=== PATIENT | female | born 1985 | race Two or more races ===

== ENCOUNTER → 2019-12-15 13:00 | Outpatient (BNVA) | payer OTHER, SELFPAY | PROVIDERS: PCP Internal Medicine; Visit Provider Surgery | DX: K81.1 Chronic cholecystitis (principal); K80.50 Calculus of bile duct without cholangitis or cholecystitis without obstruction | CPT/HCPCS: 99204 ==

== ENCOUNTER 2019-12-28 10:20 | Day surgery (SDC) | payer OTHER, SELFPAY ==
--- NOTE | 2019-12-27 10:43 | HO.ANESPROP2 ---
Documented by User: Sherine Weston 12/27/19 10:44 HPI - Anesthesia Eval Consult details Narrative: 34yo F for lap wanda PMFSH Past Medical History Medical History GERD (gastroesophageal reflux disease) Spina bifida Family History Family History Mother No problems noted. Father No problems noted. Maternal Aunt History of colon cancer Maternal Uncle History of colon cancer Sister History of thyroid cancer Surgical History Surgical History History of section History of hysterectomy Social History Social History Alcohol intake: current Alcohol intake frequency: holidays/special occasions only Smoking Status: Former smoker Smoking Quit Date: 9 years ago Use of substances other than those prescribed or required for medical reasons: No Have you been hit, kicked, punched, or otherwise hurt by someone within the past year? If so, by whom?: No Advance Directives: No Advance Directives Information Provided: Yes Advance Directives on File: No Recently lost weight without trying: Unsure Meds Allergies Allergy/AdvReac Type Severity Reaction Status Date / Time Penicillins Allergy Unknown HIVES,SWELL Verified 12/28/19 10:25 ING bee stings Allergy Severe Anaphylaxis Uncoded 12/28/19 10:26 shellfish Allergy Unknown selling Uncoded 12/28/19 10:26 hives Home Medications Medication Instructions Recorded Confirmed Type epinephrine 0.3 mg/0.3 mL 0.3 mg IM Q10M PRN 12/15/19 12/15/19 History injection, auto-injector Exam Exam Date and Time: December 27, 2019 1043 Pertinent Lab Results Pertinent Lab Results: Laboratory Tests 11/17/19 11/17/19 14:25 14:25 WBC 7.1 Hgb 12.7 Hct 38.3 Plt Count 333 Sodium 141 Potassium 4.2 Chloride 105 BUN 13 Creatinine 0.71 Assessment and Plan Assessment Anesthesia Assessment: Chart Reviewed Documented by User: Queta Grimes 12/28/19 11:48 PMFSH Past Medical History Medical History GERD (gastroesophageal reflux disease) Spina bifida Family History Family History Mother No problems noted. Father No problems noted. Maternal Aunt History of colon cancer Maternal Uncle History of colon cancer Sister History of thyroid cancer Surgical History Surgical History History of section History of hysterectomy Social History Social History Alcohol intake: current Alcohol intake frequency: holidays/special occasions only Smoking Status: Former smoker Smoking Quit Date: 9 years ago Use of substances other than those prescribed or required for medical reasons: No Have you been hit, kicked, punched, or otherwise hurt by someone within the past year? If so, by whom?: No Advance Directives: No Advance Directives Information Provided: Yes Advance Directives on File: No Recently lost weight without trying: Unsure Meds Allergies Allergy/AdvReac Type Severity Reaction Status Date / Time Penicillins Allergy Unknown HIVES,SWELL Verified 12/28/19 10:25 ING bee stings Allergy Severe Anaphylaxis Uncoded 12/28/19 10:26 shellfish Allergy Unknown selling Uncoded 12/28/19 10:26 hives Home Medications Medication Instructions Recorded Confirmed Type epinephrine 0.3 mg/0.3 mL 0.3 mg IM Q10M PRN 12/15/19 12/15/19 History injection, auto-injector Exam Airway Mallampati Class: II TM Dist: >3cm Neck ROM: Full
[2019-12-28] VITALS (11 sets, daily range): BP systolic 110–139; BP diastolic 54–67; PULSE 64–78; RESP 15–20; TEMP 36.1–36.6; O2SAT 98–100; BMI 39.6
[2019-12-28] MEDS: Acetaminophen 325 MG TABLET 650 MG PO (10:31)
[2019-12-28] MEDS: Lactated Ringers 1,000 ML 100 ML IVCONT (10:32)
--- NOTE | 2019-12-28 11:38 | MHC.SHP ---
Pre-Procedural Eval Section A The patient is an INPATIENT: No Changes since office visit: Yes Patient answered all questions; No Cold of Flu in the past 2 weeks, No New Medical Problems and No Changes in Medication The History & Physical has been completed within 30 days and I have reviewed it.: Yes Section B Chief Complaint: Chronic Cholecystitis Allergies: Allergies Allergy/AdvReac Type Severity Reaction Status Date / Time Penicillins Allergy Unknown HIVES,SWELL Verified 12/28/19 10:25 ING bee stings Allergy Severe Anaphylaxis Uncoded 12/28/19 10:26 shellfish Allergy Unknown selling Uncoded 12/28/19 10:26 hives Plan Diagnosis/Plan: Unchanged Patient has been examined and remains a candidate for the planned procedure
[2019-12-28] MEDS: Acetaminophen 325 MG TABLET PO (12:06)
--- NOTE | 2019-12-28 13:00 | PM.OP ---
Brief Operative Note Date of procedure: 12/28/19 Pre-op diagnosis: chronic cholecystitis Post-op diagnosis: same Procedure: laparoscopic cholecystectomy Surgeon: KARLY TAYLOR MD Anesthesia: GETA Manager Utility: Doris Vilchis Estimated blood loss (mL): 10 Pathology: other (gallbladder) Condition: stable Disposition: PACU
[2019-12-28] MEDS: oxyCODONE HCl Immed Release 5 MG TABLET 10 MG PO (13:20)
[2019-12-28] MEDS: fentaNYL citrate/PF 100 MCG/2 ML VIAL 50 MCG IVPUSH ×2 (13:20→13:30)
--- NOTE | 2019-12-29 16:13 | P.OP_ITS ---
Operative Note Operative Note Narrative: Preoperative diagnosis: Chronic cholecystitis cholelithiasis Postoperative diagnosis: Same Procedure: Laparoscopic cholecystectomy Laundry Attendant Doris Vilchis PA-C Anesthesia: General endotracheal Estimated blood loss: Less than 10 cc Specimen: gallbladder Immediate complications: none Indications this is a 34-year-old female who has a history of episodic severe epigastric and right upper quadrant abdominal pain. Ultrasound reveals probable sludge in the gallbladder. Procedure in detail with the patient in the supine position following induction of adequate general anesthesia, time-out procedure was performed. She had a penicillin allergy. There is no evidence of acute cholecystitis and prophylactic antibiotics were not administered as she was felt to be at low risk for surgical site infection. The abdomen was prepped with ChloraPrep and was draped sterilely. Each trocar site was infiltrated with local anesthetic prior to making incisions. An infraumbilical incision was made and was carried down to the level of the fascia. The fascia was elevated in the midline with a John clamp and holding sutures of 0 Polysorb were placed on either side. The John was released and the fascia was split in the midline. The peritoneal cavity was entered and the Mitchel trocar was inserted. The abdomen is insufflated with carbon dioxide to pressure of 15 mm of mercury in the 0 degree 5 mm laparoscopic was inserted. The peritoneal cavity was visualized. No abnormalities were noted. She was placed in reverse Trendelenburg position and was rotated left side down. 5 mm trocar was placed about a quarter of the way between the xiphoid and umbilicus just to the right of the midline an additional 5 mm trocars were inserted a few cm below the costal margin in approximately the midclavicular and anterior axillary lines. The anterior liver margin was elevated and the gallbladder was grasped on the fundus adjacent to the anterior liver margin and was retracted cephalad. It was grasped along the infundibulum and was retracted laterally using blunt graspers. Dissection was initiated on the infundibulum and was carried medially to expose the cystic duct gallbladder junction. This was dissected free circumferentially. The cystic artery was identified running just cephalad. It was dissected free circumferentially. Dissection was continued along the superomedial aspect of the gallbladder to obtain the critical view. Once this was completed, the cystic duct was doubly clipped just medial to the junction with the gallbladder, singly clipped at the junction with the gallbladder and divided between clips. The cystic artery was treated in the same fashion. The gallbladder was then dissected free from the liver bed using a combination of gentle blunt and electrosurgical dissection. No significant bleeding was encountered. Once the gallbladder was completely freed, the laparoscope was removed and reinserted through the upper medial trocar site. The specimen pouch was inserted through the Mitchel trocar and advanced into the right upper quadrant. The gallbladder was placed into the pouch and the pouch was closed and withdrawn along with the Mitchel trocar. The Mitchel was then reinserted and the laparoscopic was placed back through it. The operative field was visualized. Clips were intact on the cystic duct and cystic artery stumps. The right upper quadrant was copiously irrigated with saline solution and was again inspected for bleeding. No bleeding was seen. Clips again were noted to be intact. Following this, she was returned to the supine position. Upper abdominal trocars were removed under direct vision. There was no evidence of bleeding from the trocar sites. Insufflation was discontinued and gas was allowed to escape from the peritoneal cavity. Fascia at the Mitchel trocar site was then closed with a figure 8 suture of 0 Polysorb and the holding sutures were tied to 1 another. Skin incisions were closed with subcuticular sutures of 4 0 Polysorb. Steri-Strips and dry sterile dressings were applied. She tolerated the procedure well and was transported to the recovery room in stable condition. There were no immediate complications.
== END 2019-12-28 15:14 | disposition home or self-care (01) ==
PROVIDERS: PCP Internal Medicine; Visit Provider Surgery
PROC: 0FT44ZZ Resection of Gallbladder, Percutaneous Endoscopic Approach (ICD-10-PCS; CPT 47562; principal; 2019-12-28 12:10)
DX: K81.1 Chronic cholecystitis (principal); K21.9 Gastro-esophageal reflux disease without esophagitis; Q05.9 Spina bifida, unspecified; Z87.891 Personal history of nicotine dependence; Z79.899 Other long term (current) drug therapy; Z88.0 Allergy status to penicillin
CPT/HCPCS: 47562; 88304; J1100; J1885; J2250; J2405; J3010

== ENCOUNTER → 2020-01-12 13:06 | Outpatient (BNVA) | payer OTHER, SELFPAY | PROVIDERS: PCP Internal Medicine; Visit Provider Surgery | DX: Z48.815 Encounter for surgical aftercare following surgery on the digestive system (principal); K64.9 Unspecified hemorrhoids; Z90.49 Acquired absence of other specified parts of digestive tract | CPT/HCPCS: 99212 ==

== ENCOUNTER → 2020-03-27 08:56 | Outpatient (BNVA) | payer OTHER, SELFPAY | PROVIDERS: PCP Internal Medicine; Visit Provider Surgery | DX: Z76.89 Persons encountering health services in other specified circumstances (principal) | CPT/HCPCS: 99212 ==

== ENCOUNTER 2021-12-18 12:18 | Outpatient (REF) | payer OTHER, SELFPAY ==
--- NOTE | ~2021-12-18 | XR_ITS ---
EXAMINATION: XR CHEST CLINICAL INFORMATION: Chronic cough COMPARISON: Chest 10/27/2017 TECHNIQUE: 2 views of the chest were obtained. FINDINGS: No significant abnormality is noted involving the heart, lungs, mediastinum, bony thorax or soft tissues. XR/XR chest 2V IMPRESSION: Unremarkable chest examination.
== END 2021-12-18 12:19 | disposition home or self-care (01) ==
LOC: HO.XRAY 12:18
PROVIDERS: PCP Internal Medicine; Visit Provider Internal Medicine
DX: R05.3 Chronic cough (principal)
CPT/HCPCS: 71046

== ENCOUNTER 2022-01-16 14:37 | Outpatient (REF) | payer OTHER, SELFPAY ==
--- NOTE | 2022-01-16 | PFT_ITS ---
Forced vital capacity 94%. FEV1 89%. FEV1/FVC ratio is 79. AJG30-85 is 70%, MVV 100%. Post bronchodilator therapy, there is slight increase in WJS05-37. No other specific change. Total lung capacity 92%. Residual volume 84%. Diffusion capacity 115%. CONCLUSION: Normal pulmonary function tests. However, slight decrease in [id number] and a good response after bronchodilator therapy, may be indicative of a mild bronchospastic component. Test should be correlated with clinical picture. MD ELINOR Jones/MODL / [id number]
== END 2022-01-16 14:38 | disposition home or self-care (01) ==
LOC: HO.RESP 14:37
PROVIDERS: PCP Internal Medicine; Visit Provider Internal Medicine
DX: R05.3 Chronic cough (principal); Z79.899 Other long term (current) drug therapy
CPT/HCPCS: 94060; 94727; 94729

== ENCOUNTER 2023-08-11 08:24 | Outpatient (REF) | payer MEDICAID, SELFPAY ==
--- NOTE | 2023-08-11 08:27 | EMG_ITS ---
Bilateral median and ulnar motor and sensory studies were performed. Bilateral radial sensory studies were performed and paraspinal muscles were tested with a needle. IMPRESSION: Mild right median neuropathy across carpal tunnel. Otherwise no significant abnormality noted. MD ROLANDO Velázquez/PRICILA / [id number]
== END 2023-08-11 08:25 | disposition home or self-care (01) ==
LOC: HO.NEURO 08:24
PROVIDERS: PCP Internal Medicine; Visit Provider Internal Medicine
DX: M25.531 Pain in right wrist (principal); M25.532 Pain in left wrist
CPT/HCPCS: 95886; 95911

== ENCOUNTER 2023-09-02 10:49 | Outpatient (AMB) | payer MEDICAID, SELFPAY ==
--- NOTE | 2023-09-02 11:04 | MHC.OFFVIS ---
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 EMG done on 08/11/23. Patient reports painand numbness in her hands since last year that has been getting worse since July. Her left hand causes her the most discomfort. States numbness in all of her fingers of her left hand and her middle finger in her right hand. Symptoms mostly come at night, waking her up. Pain and Numbness radiates to her elbow, causing her to drop items. Finds wrist bracing causes swelling and bruising. 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 EMG ordered by primary care provider and performed on 08/11/[address] Trimble. Patient reports that, for approximately 1 year, she has been experiencing numbness, tingling, and pain in her bilateral hands, left worse than right. Numbness and tingling are intermittent, but daily, worse at night. The patient reports that the pain in her hands gets worse with heavy/repetitive use of her hands bilaterally. The patient also reports pain over the medial epicondyle of the left elbow, ongoing for about 1 year. Patient reports that this pain also gets worse with repetitive/heavy use of her left upper extremity. [facility] Medical History GERD (gastroesophageal reflux disease) Spina bifida Surgical History History of laparoscopic cholecystectomy History of section History of hysterectomy Family History Mother No problems noted. Father No problems noted. 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 Normal sensation to all other digits in the right hand today. Normal sensation in the tips of all digits of the left hand today. No thenar or intrinsic wasting. Good APB muscle firing and good finger cross. Vascular: Capillary refill brisk. ROM: Patient can make a fist and extend all their digits. Skin: No lacerations or abrasions noted. General: No ecchymosis. No erythema or evidence of infection. Positive Tinel's test of the hand on the right side Negative Tinel's test of the hand on the left side Left elbow examination Left elbow normal to inspection. Moderate tenderness to palpation over the medial epicondyle No tenderness to palpation over the lateral epicondyle Negative Tinel's test at the elbow Psych Appearance: grossly normal Mental Status: mental status grossly normal Results Reviewed Results Reviewed: Nerve conduction study Mild right median neuropathy across carpal tunnel. Otherwise no significant abnormality noted. Assessment & Plan Assessment & Plan (1) Medial epicondylitis of left elbow: Code(s): M77.02 - Medial epicondylitis, left elbow Category: Medical (2) Carpal tunnel syndrome, right: Code(s): G56.01 - Carpal tunnel syndrome, right upper limb Category: Medical (3) Numbness and tingling in left hand: Code(s): R20.0 - Anesthesia of skin; R20.2 - Paresthesia of skin Category: Medical Plan 1. Carpal tunnel syndrome, right Symptoms intermittent, but daily, worse at night I educated the patient about the condition. I discussed both operative and nonoperative treatment options. The patient would like to proceed with surgery. The risks and benefits of operative treatment were discussed with the patient and the patient wishes to proceed with surgery. These risks include, but are not limited to, risk of damage to blood vessels, nerves, tendons, infection, recurrence, incomplete relief of preoperative symptoms, persistent pain, possible need for further surgery, and the risks associated with regional blocks and/or anesthesia. Plan is to take the patient to the operating room at some point in the next few weeks for the following procedures: 1. Right carpal tunnel release under local anesthesia All of the preoperative paperwork including the consent was discussed today. All of the patient's questions were answered in the clinic today. The patient understands that they will be in contact with our surgical device sales representative to discuss scheduling their procedure. 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 Patient denies diabetes, blood thinners, asthma, heart issues, lung issues, kidney issues, or current smoking. 2. Left medial epicondylitis patient will be referred to Occupational therapy for treatment for medial epicondylitis. Patient is educated that this will not be a short recovery process, and then it will likely take several weeks to several months in order to get resolution of symptoms. Patient is advised that if symptoms do not resolve after approximately 3-4 months, they can follow up in the office for discussion of other potential treatment options. 3. Numbness and tingling of the left hand Symptoms intermittent, but daily, worse at night Negative nerve conduction study At this time, due to negative nerve conduction study, surgical treatment is not indicated in the left hand of this patient. Patient is advised that if she is still experiencing symptoms in approximately 6 months, she can follow up in office and we will get a repeat nerve conduction study. Orders: Orders OT Evaluation and Treatment 09/02/23 M77.02 - Medial epicondylitis, left elbow Coding Level of Care Code New Pt Level 4 (66529) Diagnoses Medial epicondylitis of left elbow M77.02 Carpal tunnel syndrome, right G56.01 Numbness and tingling in left hand R20.0; R20.2
== END 2023-09-02 14:54 | disposition home or self-care (01) ==
PROVIDERS: PCP Internal Medicine
DX: G56.01 Carpal tunnel syndrome, right upper limb (principal); M77.02 Medial epicondylitis, left elbow; R20.0 Anesthesia of skin; R20.2 Paresthesia of skin
CPT/HCPCS: 99204

== ENCOUNTER → 2023-09-02 10:49 | Outpatient (BNVA) | payer MEDICAID, SELFPAY | PROVIDERS: PCP Internal Medicine; Visit Provider Orthopaedic Surgery | DX: M77.02 Medial epicondylitis, left elbow (principal); G56.01 Carpal tunnel syndrome, right upper limb; R20.0 Anesthesia of skin; R20.2 Paresthesia of skin | CPT/HCPCS: 99202; 99212 ==

== ENCOUNTER 2023-11-05 10:01 | Day surgery (SDC) | payer MEDICAID, SELFPAY ==
[2023-11-05 11:27] VITALS: BMI 41.6
[2023-11-05 11:28] VITALS: BP 121/58; PULSE 81; RESP 18; TEMP 36.7; O2SAT 96
--- NOTE | 2023-11-05 13:42 | MHC.SHP ---
Pre-Procedural Eval Section A - 24 Hr Update-Section A only Date of Service: 11/05/23 The patient is an INPATIENT: No Changes since office visit: No Cold of Flu in the past 2 weeks, No New Medical Problems, No Changes in Medication and No Patient answered all questions The patient has been examined within 24 hours of the surgical procedure. The History & Physical has been completed within 30 days and I have reviewed it.: Yes Section B - Complete if H&P > 30 days Chief Complaint: Carpal tunnel syndrome, right upper limb Allergies: Allergies Allergy/AdvReac Type Severity Reaction Status Date / Time Penicillins Allergy Unknown HIVES,SWELL Verified 09/02/23 11:15 ING bee stings Allergy Severe Anaphylaxis Uncoded 09/02/23 11:15 shellfish Allergy Unknown selling Uncoded 09/02/23 11:15 hives Exam Exam Comment: Right carpal tunnel syndrome Plan Diagnosis/Plan: Unchanged I have reviewed the history and physical and performed a pertinent physical examination on my patient. No changes have occurred unless specified. Time Spent With Patient Time: Total time managing care of this patient today ____ minutes.
--- NOTE | 2023-11-05 13:42 | W.PM.OPN ---
Operative Note Operative Note Date of Service: 11/05/23 Narrative: Preop diagnosis: 1. Right Carpal tunnel syndrome Postop diagnosis: same Procedure: 1. Right Carpal tunnel release Surgeon: Chandni Alegre MD Electronics Instructor: Catalino GIRON Anesthesia: local block using 1% lidocaine with epinephrine Findings: Thickened transverse carpal ligament. EBL: Less than 5 mL Specimens: None Complications: None Disposition: Brought to recovery room in stable condition Plan: Follow-up for 10-14 days for wound check and suture removal Indications: The patient is 38 years old, with right carpal tunnel syndrome that has been unresponsive to nonoperative management. The risks and benefits of operative treatment including but not limited to risk of damage to blood vessels, nerves, tendons, infection, persistent pain, persistent symptoms, or possible need for additional surgery were discussed with the patient and the patient wishes to proceed with surgery. Procedure: Once consent was obtained a local block was performed using a combination of 1% lidocaine with epinephrine. The patient was then brought back to the operating suite and placed on the operative table in supine position. The right upper extremity was prepped and draped in a standard surgical fashion. Once assured that we had a good block, a 2.0 cm longitudinal incision was made centered over the carpal tunnel. The incision was made through the skin to the subcutaneous tissues using a #15 blade. Dissection was made down to the level of the transverse carpal ligament with care being taken to protect the palmar cutaneous nerve. Once the transverse carpal ligament was clearly visualized, a longitudinal incision was made in the transverse carpal ligament 1st using a #15 blade, then using tenotomy scissors under direct visualization. Care was taken to look for and protect the motor branch of the median nerve when seen in this area. Once satisfied with our carpal tunnel release the wound was copiously irrigated with normal saline and hemostasis was obtained with a brief period of local pressure. The skin edges were reapproximated with some 5.0 nylon suture material and a sterile dressing was applied. The patient appears to have tolerated the procedure well and with no complications. All digits were well vascularized at the conclusion of the case.
[2023-11-05 15:28] VITALS: BP 134/87; PULSE 69; RESP 18; O2SAT 98
== END 2023-11-05 15:30 | disposition home or self-care (01) ==
PROVIDERS: PCP Internal Medicine; Visit Provider Orthopaedic Surgery
PROC: (CPT 64721; principal; 2023-11-05 13:10)
DX: G56.01 Carpal tunnel syndrome, right upper limb (principal); R20.0 Anesthesia of skin; R20.2 Paresthesia of skin; Q05.9 Spina bifida, unspecified; Z88.0 Allergy status to penicillin; Z98.890 Other specified postprocedural states
CPT/HCPCS: 64721; J0171

== ENCOUNTER → 2023-11-05 10:01 | Outpatient (BNV) | payer MEDICAID, SELFPAY | PROVIDERS: PCP Internal Medicine; Visit Provider Orthopaedic Surgery | DX: G56.01 Carpal tunnel syndrome, right upper limb (principal) | CPT/HCPCS: 64721 ==

== ENCOUNTER 2023-11-18 13:48 | Outpatient (AMB) | payer SELFPAY ==
--- NOTE | 2023-11-18 13:53 | MHC.OFFVIS ---
Vital Signs 11/18/23 13:58 Handedness Left Intake Visit Reasons: PO RT CTR 11/05/23 AR Intake Note: Janeth is a 38 year old 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 female who presents today post operatively S/P Right Carpal Tunnel Release DOS: 11/05/2023. Patient reports she no longer feels numbness and tingling. She reports her insicion site feels tight becaus eof her sutures. Sutures removed and steri strips applied. Allergies Penicillins Allergy (Unknown, Verified 11/18/23 13:57) HIVES,SWELLING bee stings Allergy (Severe, Uncoded 11/18/23 13:57) Anaphylaxis shellfish Allergy (Unknown, Uncoded 11/18/23 13:57) selling hives HPI HPI PO RT CTR 11/05/23 AR: Details: Patient is a 38-year-old female who presents for postoperative evaluation status post right carpal tunnel release, DOS 11/05/2023. Today, the patient reports that she is feeling very well, and is not experiencing any numbness or tingling in the right upper extremity at this time. Patient reports no concerns with the incision site, and states that she has not had any discharge from the area since surgery. Patient reports that the range of motion of her right hand is full and intact. No other acute complaints or concerns at this time. PENDING SALE TO [facility] Medical History GERD (gastroesophageal reflux disease) Spina bifida Surgical History History of laparoscopic cholecystectomy History of section History of hysterectomy Family History Mother No problems noted. Father No problems noted. 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 Neuro: Normal sensation of the tips of all digits of the right hand at this time Vascular: Cap refill brisk Pain: Very mild tenderness to palpation about the incision site Range of motion of the right hand painless ROM: Patient is able to make a closed fist and extend all digits of the right hand fully without difficulty Skin: Well-healing and well-approximated incision site on the volar right wrist noted No evidence of infection General: No ecchymosis, erythema, or evidence of infection. Psych: Appears grossly normal Affect normal Attitude cooperative Assessment & Plan Assessment & Plan (1) Numbness and tingling in left hand: Code(s): R20.0 - Anesthesia of skin; R20.2 - Paresthesia of skin Category: Medical (2) Carpal tunnel syndrome, right: Code(s): G56.01 - Carpal tunnel syndrome, right upper limb Category: Medical Plan 1. Right carpal tunnel syndrome status post carpal tunnel release DOS 11/04/2023 Patient appears to be recovering well postoperatively Patient is educated about the typical recovery course Patient is informed that she does not require any acute follow-up with us, as she is doing well postoperatively Patient is amenable to this plan Patient will follow-up as needed with any acute concerns 2. Numbness tingling in left hand With negative EMG Patient is informed that we can redo EMG six-month after previous EMG to reassess the health of the nerves of the left upper extremity Patient is amenable to this plan Patient will call to book an appointment in approximately February for referral for repeat EMG, sooner with any acute concerns Coding Level of Care Code Global (67038) Diagnoses Numbness and tingling in left hand R20.0; R20.2 Carpal tunnel syndrome, right G56.01
== END 2023-11-18 14:21 | disposition home or self-care (01) ==
PROVIDERS: PCP Internal Medicine
DX: R20.0 Anesthesia of skin (principal); R20.2 Paresthesia of skin; G56.01 Carpal tunnel syndrome, right upper limb
CPT/HCPCS: 99024

== ENCOUNTER → 2023-11-18 13:48 | Outpatient (BNVA) | payer MEDICAID, SELFPAY | PROVIDERS: PCP Internal Medicine | DX: Z48.811 Encounter for surgical aftercare following surgery on the nervous system (principal); Z98.890 Other specified postprocedural states; Z86.69 Personal history of other diseases of the nervous system and sense organs | CPT/HCPCS: 99212 ==

== ENCOUNTER → 2023-11-25 14:31 | Outpatient (BNVA) | payer OTHER, SELFPAY | PROVIDERS: PCP Internal Medicine; Visit Provider Physician Assistant Medical | DX: S76.112A Strain of left quadriceps muscle, fascia and tendon, initial encounter (principal); W03.XXXA Other fall on same level due to collision with another person, initial encounter; M25.462 Effusion, left knee | CPT/HCPCS: 73564; 99203 ==

== ENCOUNTER → 2023-12-02 11:40 | Outpatient (BNVA) | payer OTHER, SELFPAY | PROVIDERS: PCP Internal Medicine; Visit Provider Physician Assistant Medical | DX: M25.562 Pain in left knee (principal); R60.1 Generalized edema | CPT/HCPCS: 99213 ==

== ENCOUNTER 2024-01-20 09:38 | Emergency (ER) | payer OTHER, SELFPAY ==
--- NOTE | ~2024-01-20 | XR_ITS ---
EXAMINATION: XR CERVICAL SPINE CLINICAL INFORMATION: Neck pain COMPARISON: None available. TECHNIQUE: 3 views of the cervical spine were obtained. FINDINGS: The vertebral soft tissues normal. There is anterior spurring at C5-6 and C6-7, but no fracture or destructive process. The lateral masses of C1 and odontoid are intact. XR/XR cervical spine 2V IMPRESSION: Degenerative change but no acute findings. Electronically signed by: Jefferson Hennessy MD 01/20/2024 01:01 PM PAT MARKS
--- NOTE | ~2024-01-20 | XR_ITS ---
EXAMINATION: XR SACRUM AND COCCYX CLINICAL INFORMATION: fall, pain COMPARISON: None available. TECHNIQUE: 2 views of the sacrum and 2 views of the coccyx were obtained. FINDINGS: There are no fractures. No bone, joint or soft tissue abnormality is demonstrated. Bilateral sacroiliac joints are maintained. No soft tissue abnormality. No radiopaque foreign body. XR/XR sacrum coccyx min 2V IMPRESSION: No acute fracture or dislocation. Electronically signed by: Betsy Miguel DO 01/20/2024 03:37 PM EST
[2024-01-20 09:57] VITALS: BP 111/79; PULSE 82; RESP 16; TEMP 37; O2SAT 97; BMI 42.3
[2024-01-20 14:04] VITALS: BP 126/77; PULSE 76; RESP 16; TEMP 36.1; O2SAT 100
[2024-01-20] MEDS: Ketorolac Tromethamine 30 MG/ML VIAL IM (15:38)
--- NOTE | 2024-01-20 15:41 | ED.FALL ---
HPI - Fall General Chief Complaint: Fall Stated Complaint: Head Neck Back Pain S/P Fall 01/15/24 Time Seen by Provider: 01/20/24 13:44 Source: patient and RN notes reviewed Mode of arrival: ambulatory Limitations: no limitations History of Present Illness ED Provider: Eleanor Geiger PA-C HPI Narrative: This is a 38-year-old female who presents emergency department with complaints of mechanical fall which occurred last week. Patient states that 5 days ago she was getting into the shower while she was in [place], slipped and fell and landed directly onto her low back. She states that she was on the ground for several minutes. She denies hitting her head or LOC. She states that the pain in her back worsens with palpation, and with ambulation. She denies any severe headache, dizziness blurred vision, chest pain, shortness of breath, abdominal pain, nausea, vomiting or diarrhea. No other complaints or concerns at this time. MD complaint: fall Onset (ago): week(s) Fall from: standing Fall witnessed: no Place fall occurred: other (Hotel room) Loss of consciousness: none Prolonged down time: minute(s) Symptoms prior to fall: none Context: tripped/slipped Location of injury: back Associated symptoms (after fall): denies Related Data Home Medications ?Medication ?Instructions ?Recorded ?Confirmed epinephrine 0.3 mg/0.3 mL 0.3 mg IM Q10M PRN 12/15/19 12/15/19 injection, auto-injector (EpiPen) acidophilus 25 million 1 tab PO DAILY 03/27/20 03/27/20 cell-pectin, citrus 100 mg tablet omeprazole 40 mg capsule,delayed 40 mg PO DAILY 03/27/20 03/27/20 release citalopram 10 mg tablet 10 mg PO DAILY 09/02/23 hydroxyzine HCl 25 mg tablet 25 mg PO TID 09/02/23 trazodone 50 mg tablet 50 mg PO BEDTIME 09/02/23 Previous Rx's ?Medication ?Instructions ?Recorded cholestyramine-aspartame 4 gram 4 g PO QIDACHS #210 grams 03/27/20 oral powder naproxen 500 mg tablet 500 mg PO BID PRN back pain #28 11/25/23 tabs methocarbamol 750 mg tablet 750 mg PO TID 3 days #9 tabs 01/20/24 Allergies Allergy/AdvReac Type Severity Reaction Status Date / Time Penicillins Allergy Unknown HIVES,SWELL Verified 01/20/24 10:01 ING bee stings Allergy Severe Anaphylaxis Uncoded 11/18/23 13:57 shellfish Allergy Unknown selling Uncoded 11/18/23 13:57 hives Review of Systems Review of Systems: Yes all other systems are reviewed and are negative Constitutional: Constitutional: Reports as per [facility] Past Medical History Medical History GERD (gastroesophageal reflux disease) Spina bifida Surgical History History of laparoscopic cholecystectomy History of section History of hysterectomy Family History Family History Mother No problems noted. Father No problems noted. 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, 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 Physical Exam Vital Signs: Vital Signs: Last Vital Signs Temp 97.0 F 01/20/24 16:11 Pulse 76 01/20/24 16:11 Resp 16 01/20/24 16:11 BP 126/77 01/20/24 16:11 Pulse Ox 100 01/20/24 16:11 O2 Del Method Room Air 01/20/24 16:11 BMI result Body Mass Index 42.3 Const: General: cooperative, comfortable and no acute distress Orientation/consciousness: patient oriented x3 Limitations: no limitations HEENT: Head: Yes normal to inspection, Yes normocephalic and Yes atraumatic Ears: hearing grossly normal bilaterally and TM's normal bilaterally (No hemotympanum) General nose exam: Normal external nose present Face and sinus: Yes normal facial exam Mouth: Normal oral and palatal mucosa present, oropharynx normal and moist mucous membranes Throat: Yes posterior oropharynx normal Eyes: General: appearance normal, both eyes and all related structures Eyelids: Yes eyelids normal Conjunctivae: conjunctivae normal Sclerae: sclerae normal Pupils: Equal, round and reactive pupils present EOM: EOMs intact bilaterally Neck: Other: No midline spine tenderness on examination, full ROM of the neck Neck: Yes normal visual inspection, Yes full ROM and Yes no lymphadenopathy Lymphatic: no lymphadenopathy noted Chest: Chest palpation & inspection: normal inspection of the chest Resp: Effort & Inspection: normal respiratory effort and able to speak in complete sentences Auscultation: clear to auscultation bilaterally, no crackles, no rales, no rhonchi and no wheezes Cardio: Rate: regular rate Rhythm: regular rhythm Heart sounds: S1 normal heart sound present and S2 normal heart sound present GI: Inspection: Yes normal to inspection Back/Spine/Pelvis: Other: Lumbar spine with point tenderness palpation along the sacrum and coccyx region. No overlying skin changes or warmth. No ecchymosis seen. No hematoma seen. Skin: General skin exam: no rashes or lesions noted Trauma: no lacerations or abrasions Wounds: no wounds Neuro: General: patient oriented x3 and moves all extremities Cranial nerves: Yes Equal, round and reactive pupils present Extrem: General: Yes normal to inspection Right upper extremity: normal to inspection Left upper extremity: normal to inspection Right lower extremity: normal to inspection Left lower extremity: normal to inspection Medications Administered Discontinued Medications Generic Name Dose Route Start Last Admin Trade Name Freq PRN Reason Stop Dose Admin Ketorolac Tromethamine 30 mg 01/20/24 14:29 01/20/24 15:38 Ketorolac Tromethamine 30 Mg/Ml Vial IM 01/20/24 14:30 30 mg ONCE ONE Administration Medical Decision Making Medical Decision Making [facility] Narrative: This is a 38-year-old female who presents emergency department for evaluation of low back pain. Patient had a slip and fall 5 days prior to her assessment in the emergency room. She accidentally slipped on water, and fell directly onto her tailbone. She states that she was on the ground for several minutes due to the pain in her back. She has been ambulatory with steady gait. She has point tenderness palpation along her coccyx region. No LOC. Denies severe headache or dizziness. Fall occurred greater than 5 days ago. She is not on anticoagulation. X-rays were performed revealing no acute bony abnormalities from the traumatic fall. Discussed findings with patient. Discussed strict return precautions. She understands and agrees with plan. Patient stable for discharge Differential Diagnosis Differential Diagnoses: The differential diagnosis associated with the presentation includes Fracture, contusion, slipped disc, disc herniation Radiology Impression Discussion of test interpretation with radiology: I have reviewed the radiologist's reading. Radiologist Impression: EXAMINATION: XR SACRUM AND COCCYX CLINICAL INFORMATION: fall, pain COMPARISON: None available. TECHNIQUE: 2 views of the sacrum and 2 views of the coccyx were obtained. FINDINGS: There are no fractures. No bone, joint or soft tissue abnormality is demonstrated. Bilateral sacroiliac joints are maintained. No soft tissue abnormality. No radiopaque foreign body. XR/XR sacrum coccyx min 2V IMPRESSION: No acute fracture or dislocation. Electronically signed by: Betsy Miguel DO 01/20/2024 03:37 PM EST RP EXAMINATION: XR CERVICAL SPINE CLINICAL INFORMATION: Neck pain COMPARISON: None available. TECHNIQUE: 3 views of the cervical spine were obtained. FINDINGS: The vertebral soft tissues normal. There is anterior spurring at C5-6 and C6-7, but no fracture or destructive process. The lateral masses of C1 and odontoid are intact. XR/XR cervical spine 2V IMPRESSION: Degenerative change but no acute findings. Electronically signed by: Jefferson Hennessy MD 01/20/2024 01:01 PM EST RP Dictated By: Jefferson Hennessy MD Discharge Plan Discharge Clinical Impression: Low back pain, Pain, coccyx Patient Disposition: Home, Self-Care Instructions: Acute Low Back Pain (ED), Back Pain (ED) Additional Instructions: You were seen in the emergency department due to low back pain after a slip and fall last week. Your x-ray does not show any bony abnormalities. Please rest, ice, continue taking ibuprofen or Tylenol for pain relief. Please follow-up with your primary care physician regarding this visit. If any new or worsening symptoms occur including but not limited to worsening pain, fevers, chills, chest pain, shortness of breath, severe headache, dizziness, please return for re-evaluation. I am also prescribing you a different muscle relaxants, Robaxin, this can cause drowsiness, do not drink alcohol or drive while taking this medication. Do not mix with your previously prescribed Flexeril. Follow-up with your primary care physician regarding this visit. Prescriptions: New methocarbamol 750 mg tablet 750 mg PO TID 3 Days Qty: 9 0RF No Action acidophilus-pectin, citrus 25 million cell -100 mg tablet 1 tab PO DAILY omeprazole 40 mg capsule,delayed release(DR/EC) 40 mg PO DAILY cholestyramine-aspartame 4 gram powder 4 g PO QIDACHS Qty: 210 5RF Rx Instructions: no meds 1 hr before/4-6 hr after dose epinephrine [EpiPen] 0.3 mg/0.3 mL auto-injector 0.3 mg IM Q10M PRN Rx Instructions: for 2 doses trazodone 50 mg tablet 50 mg PO BEDTIME hydroxyzine HCl 25 mg tablet 25 mg PO TID citalopram 10 mg tablet 10 mg PO DAILY naproxen 500 mg tablet 500 mg PO BID PRN (Reason: back pain) Qty: 28 0RF Stand Alone Forms: Work/School Release Interventions: ED Discharge Assessment Last Done: 01/20/24 16:11 Discharge Date/Time: 01/20/24 16:12 Print Language: Rw[place]an
[2024-01-20 16:11] VITALS: BP 126/77; PULSE 76; RESP 16; TEMP 36.1; O2SAT 100
== END 2024-01-20 16:12 | disposition home or self-care (01) ==
PROVIDERS: Emergency Provider Student in an Organized Health Care Education/Training Program; PCP Internal Medicine
DX: M54.50 Low back pain, unspecified (principal); M53.3 Sacrococcygeal disorders, not elsewhere classified; M54.2 Cervicalgia; Z79.899 Other long term (current) drug therapy
CPT/HCPCS: 72040; 72220; 96372; 99283; 99284; J1885

== ENCOUNTER 2024-02-08 08:26 | Outpatient (REF) | payer OTHER, SELFPAY ==
[2024-02-08 19:41] LABS: Influenza A PCR NEGATIVE (Negative); Influenza B PCR NEGATIVE (Negative); Resp Syncy Virus RNA Qual PCR POSITIVE (Negative); SARS COV2 PCR INHOUSE NEGATIVE (Negative)
== END 2024-02-08 08:27 | disposition home or self-care (01) ==
LOC: HO.LNP 08:26
PROVIDERS: PCP Internal Medicine; Visit Provider Registered Nurse
DX: J06.9 Acute upper respiratory infection, unspecified (principal)
CPT/HCPCS: 0241U; 99212

== ENCOUNTER 2024-02-08 08:26 | Outpatient (AMB) | payer OTHER, SELFPAY ==
--- NOTE | 2024-02-08 09:16 | MHC.OFFWIV ---
Intake Vital Signs 02/08/24 09:17 Height 5 ft 1 in Weight 228 lb BMI 43.1 BP 110/70 Blood Pressure Location Rt brachial Position Sitting Pulse 79 Pulse Source Pulse Oximeter Temp 98.5 F Temp Source Oral Pulse Oximetry (%) 97 Oxygen Delivery Method Room Air Intake Visit Reasons: EP-body ache, stuffy nose, mucus, cough Intake Note: Patient here for cough, headache, body aches and congestion that started Thursday. Patient Tobacco Use Status: Former Tobacco user Allergies Penicillins Allergy (Unknown, Verified 02/08/24 09:17) HIVES,SWELLING bee stings Allergy (Severe, Uncoded 02/08/24 09:17) Anaphylaxis shellfish Allergy (Unknown, Uncoded 02/08/24 09:17) selling hives Do you need a note to return to daycare/school/sports/work: Yes HPI EP-body ache, stuffy nose, mucus, cough HPI Details This note is constructed using voice recognition software. While every effort has been made to ensure accuracy, fruit vendor errors may have been included. The patient is a 38 year old female who presents to the clinic today with 3 day history of body aches, stuffy nose, and cough and congestion. She reports symptoms felt relatively rapid onset on Thursday, and her son is also now sick. She denies shortness of breath. She is using multiple medications including TheraFlu, DayQuil, NyQuil, and Advil for symptomatic management. They all seem to be helping quite well. [facility] Medical History GERD (gastroesophageal reflux disease) Spina bifida Surgical History History of laparoscopic cholecystectomy History of section History of hysterectomy Family History Mother No problems noted. Father No problems noted. 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 Review of Systems Const All systems reviewed & are unremarkable except as noted in HPI and below Physical Exam Vital Signs: Last Vital Signs Temp 98.5 F 02/08/24 09:17 Pulse 79 02/08/24 09:17 BP 110/70 02/08/24 09:17 Pulse Ox 97 02/08/24 09:17 Oxygen Delivery Method Room Air 02/08/24 09:17 BMI result Body Mass Index 43.1 Const General: cooperative, healthy appearing, comfortable and no acute distress Orientation/consciousness: patient oriented x3 Limitations: no limitations HEENT Head: Yes normal to inspection Ears: hearing grossly normal bilaterally, external ears normal and TM's normal bilaterally General nose exam: Normal external nose present, Normal nares present and No nasal discharge present Face and sinus: Yes normal facial exam and Yes sinuses nontender Mouth: Normal oral and palatal mucosa present and moist mucous membranes Throat: Yes tonsils normal, Yes uvula midline and Yes posterior oropharynx abnormal (Erythema) Eyes General: appearance normal, both eyes and all related structures Neck Neck: Yes normal visual inspection Resp Effort & Inspection: normal respiratory effort, able to speak in complete sentences, Actively coughing, no respiratory distress, not tachypneic, no tripod positioning and no use of accessory muscles Auscultation: clear to auscultation bilaterally Cardio Jugular venous distension: no JVD Rate: regular rate Rhythm: regular rhythm Heart sounds: S1 normal heart sound present, S2 normal heart sound present, no click, no gallops, no murmurs and no rubs Skin General skin exam: no rashes or lesions noted, elasticity normal and turgor normal Neuro General: patient oriented x3 Extrem General: Yes normal to inspection and Yes no clubbing, cyanosis or edema Assessment & Plan Assessment & Plan (1) URI (upper respiratory infection): Code(s): J06.9 - Acute upper respiratory infection, unspecified Qualifiers: URI type: unspecified URI Qualified Code(s): J06.9 - Acute upper respiratory infection, unspecified Plan: Viral swab obtained to rule out Covid, Flu, RSV based on symptoms. Advised mask wearing while symptomatic and quarantine per current CDC guidelines. Reviewed at home support methods including hydration, humidification, vix vapor rub, sinus rinse. Advised follow up with worsening symptoms such as dyspnea at rest, which would require emergent evaluation. Plan See above for full details and plan. Orders: Orders SARS-CoV2/FLU/RSV Today J06.9 - Acute upper respiratory infection, unspecified Coding Level of Care Code Est Pt Level 3 (80626) Diagnoses Upper respiratory tract infection, unspecified type J06.9 URI type: unspecified URI
[2024-02-08 09:17] VITALS: BP 110/70; PULSE 79; TEMP 36.9; O2SAT 97; BMI 43.1
== END 2024-02-08 09:38 | disposition home or self-care (01) ==
PROVIDERS: PCP Internal Medicine; Visit Provider Registered Nurse
DX: J06.9 Acute upper respiratory infection, unspecified (principal)

== ENCOUNTER 2024-02-14 | Outpatient (REF) | payer OTHER, SELFPAY | END 2024-02-14 00:01 | disposition home or self-care (01) | LOC: HO.MRI | PROVIDERS: PCP Internal Medicine; Visit Provider Internal Medicine | DX: M54.2 Cervicalgia (principal) | CPT/HCPCS: 72141 ==

== ENCOUNTER 2024-11-17 11:16 | Outpatient (REF) | payer OTHER, SELFPAY ==
--- NOTE | ~2024-11-17 | MM_ITS ---
EXAMINATION: MM DIAGNOSTIC DIGITAL BREAST TOMOSYNTHESIS, BILATERAL Bilateral Limited ultrasound. CLINICAL INFORMATION: Bilateral breast pain. COMPARISON: Mammography: Comparison is made with relevant prior exams. TECHNIQUE: Digital breast mammography with tomosynthesis is performed in both the craniocaudal and mediolateral oblique views along with computer-aided detection (CAD). FINDINGS: There are scattered areas of fibroglandular density (ACR BI-RADS breast composition Category b). Left: Triangular marker in the upper outer breast site of patient's pain without underlying abnormal finding. No suspicious calcifications or other abnormal findings. Targeted color Doppler ultrasound scanning in the area of the patient's left breast pain from 2-4 o'clock demonstrates normal fibronodular breast tissue. There is no sonographic abnormal finding. Right: Kerkhoven marker at site of patient's pain upper outer breast anterior depth without underlying abnormal finding. No suspicious calcifications or other abnormal findings. Targeted color Doppler ultrasound scanning in the area the patient's pain from 8-10 o'clock retroareolar region demonstrates normal fibronodular breast tissue. There is no sonographic abnormal finding. Results are provided to the patient at time of visit by the technologist. MM/MM tomosynthesis diagnostic BI IMPRESSION: No mammographic or sonographic abnormal finding in the bilateral breasts to account for the patient's pain. Recommend clinical evaluation follow-up. ASSESSMENT: BI-RADS BI-RADS 1 - Negative RECOMMENDATION: 1. Patient should be managed based on the clinical impression. 2. Otherwise, routine annual screening mammography. This patient's information was entered into a reminder system with a target due date for their next mammogram. Electronically signed by: Rosalina Nina DO 11/17/2024 01:15 PM EDT
--- OUTSIDE RECORDS SUMMARY | 2024-11-17 15:34 | XMS_ITS | Clinical Summary ---
Author Organization [employer] Address [address] [place] [address] Care Team Providers Care Instructor Bridge Name Role Phone Maggie Mace MD Primary Care Provide r Allergies Active Allergy Reactions Criticality Noted Date Comments Bee Venom 06/17/2024 Penicillins Other reaction(s): Unknown Shellfish Allergy 06/17/2024 Other Reaction(s): Hives Medications Ventolin HFA 108 (90 Base) MCG/ACT inhaler 2 puffs every 4 (four) hours if needed. 2 Active EPINEPHrine (Epipen) 0.3 MG/0.3ML injection syringeIndicatio ns:Shellfish allergy Inject 0.3 mL (0.3 mg) as directed 1 (one) time for 1 dose. 1 each 4 Active hydrOXYzine HCl (Atarax) 25 MG tabletIndication s:Mixed anxiety and depressive disorder Take 1 tablet (25 mg) by mouth if needed in the morning, at noon, and at bedtime for itching. 90 tablet 4 Active lidocaine (Lidoderm) 5 % patchIndications :Coccygeal pain,Cervicalgia ,Chronic bilateral low back pain without sciatica Apply 1 patch topically Once per day. Remove & discard patch within 12 hours or as directed by MD. 30 patch 1 4 Active citalopram (CeleXA) 10 MG tabletIndication s:Mixed anxiety and depressive disorder Take 1 tablet (10 mg) by mouth Once per day. 30 tablet 3 5 Active traZODone (Desyrel) 50 MG tabletIndication s:Mixed anxiety and depressive disorder Take 1 tablet (50 mg) by mouth at bedtime. 30 tablet 3 5 02/05/20 25 Active methocarbamol (Robaxin) 750 MG tabletIndication s:Coccygeal pain,Cervicalgia Take 1 tablet (750 mg) by mouth at bedtime. 30 tablet 1 5 12/07/19 25 Active phentermine 15 MG capsuleIndicatio ns:Class 2 obesity due to excess calories without serious comorbidity with body mass index (BMI) of 39.0 to 39.9 in adult Take 1 capsule (15 mg) by mouth before breakfast. 30 capsule 1 5 Active clotrimazole (Lotrimin) 1 % creamIndications :Intertrigo Apply topically 2 times daily for 28 days. 30 g 2 5 11/09/19 25 Active Problems Problem Noted Date Diagnosed Date Breast pain, left 10/11/2024 Intertrigo 10/11/2024 Calcific tendinitis of left shoulder 10/07/2024 Lateral epicondylitis of left elbow 10/07/2024 Class 2 obesity due to exces s calories without serious comorbidity with body mass index (BMI) of 39.0 to 39.9 in adult 10/07/2024 Assessment & Plan (10/07/2024 1:35 PM EDT): Today extensive discussion was done about life style modifications I advise healthy diet (low calorie) and cardiovascular exercise I decided to start her on phentermine 15mg , side effects of medication where discuss plan is to f/u in 4-6 weeks Coccygeal pain 02/02/2024 Assessment & Plan (05/04/2024 10:28 AM EST): Continue with pain medications as needed Cervicalgia 02/02/2024 Assessment & Plan (05/04/2024 10:27 AM EST): Apply heat on affected area Continue with lidocaine patches as needed Continue with acetaminophen and Robaxin as needed Patient has information for physical therapy, she will call to set up appointments Bilateral carpal tunnel syndrome 11/04/2023 Assessment & Plan (11/04/2023 2:51 PM EDT): Patient is schedule for surgical intervention Neck pain 11/04/2023 Shellfish allergy 08/04/2023 Bilateral wrist pain 07/06/2023 Assessment & Plan (08/04/2023 12:00 PM EDT): Nerve test ordered I will go ahead and refer patient to orthopedics I advise to use her wrist braces as much as possible Assessment & Plan (07/06/2023 4:56 PM EDT): -I will prescribe wrist braces Lipoma 06/05/2023 Family history of cancer 02/19/2023 Chronic cough 04/07/2022 Hearing loss of left ear 04/07/2022 Grief 04/07/2022 Streptococcal sore throat 04/07/2022 Upper abdominal pain 04/07/2022 History of abdominal hysterectomy 04/30/2018 Recurrent major depressive episodes 05/08/2017 Hip pain 12/09/2016 Shoulder pain 12/09/2016 Posttraumatic stress disorder 11/13/2016 Allergic rhinitis 06/13/2015 Migraine 07/28/2012 Morbid obesity 07/28/2012 Mixed anxiety and depressive disorder 12/24/2011 Assessment & Plan (10/07/2024 1:35 PM EDT): Counseling done I re-start trazodone for insomnia Assessment & Plan (05/04/2024 10:28 AM EST): Counseling done today Continue with citalopram 10 mg daily Continue with trazodone 50 mg at bedtime Assessment & Plan (11/04/2023 2:51 PM EDT): Counseling done today C/w same medication regimen Assessment & Plan (08/04/2023 12:01 PM EDT): Stable C/W same medication regimen Patient declines therapy referral Assessment & Plan (07/06/2023 4:57 PM EDT): Continue with same medication regimen RTC 4 weeks televisit Assessment & Plan (06/05/2023 2:28 PM EDT): Counseling done I will start her citalopram 10mg daily (fluoxetine was discontinue because it cause on her mood swings) Trazodone 50mg at bed time for sleeping Hydroxizine 25mg Q 6hrs PRN RTC 4 weeks Assessment & Plan (02/19/2023 12:04 PM EST): Counseling done She is not taking trazodone anymore I discontinue it I started her on fluoxetine 20mg daily and hydroxyzine PRN RTC 4 weeks televisit Chronic bilateral low back pain without sciatica 10/24/2011 Assessment & Plan (06/05/2023 2:28 PM EDT): Apply heat on affected area Acetaminophen PRN Resolved Problems Problem Noted Date Diagnosed Date Resolved Date Allergic reaction 08/04/2023 10/07/2024 ASCUS with positive high risk HPV cervical 07/15/2016 10/07/2024 High grade squamous intraepi thelial lesion of cervix 07/15/2016 10/07/2024 Encounters Date Type Department Care Team Description 10/07/2024 11:15 AM EDT Office Visit [facility] [address] [place] [id number] Maggie Mace MD Class 2 obesity due to excess calories without serious comorbidity with body mass index (BMI) of 39.0 to 39.9 in adult (Primary Dx); Calcific tendinitis of left shoulder; Lateral epicondylitis of left elbow; Mixed anxiety and depressive disorder; Coccygeal pain; Cervicalgia; Breast pain, left; Intertrigo 10/07/2024 Travel from Last 3 Months Immunizations Immunization Administration Dates Next Due Hep B, Adolescent or Pediatric 06/10/2011 Hep B, adult 05/03/2014 Influenza Injectable Quadriv alant Preservative Free IIV4 MDCK 11/16/2019 Influenza injectable quadriv alent IIV4 with preservative 11/17/2018,11/18/2017 Influenza, High Dose Seasonal, Preservative Free 11/19/2016 Influenza, IIV3, injectable 11/19/2011 Pfizer Covid-19 Vaccine 12+ Bivalent 03/12/2022 Tdap 08/12/2021 Varicella 04/24/2011 Family History Medical History Relation Name Comments Hypertension Mother Thyroid disease Mother Colon cancer Mother's Sister Diabetes Mother's Sister Thyroid cancer Sister Relation Name Status Comments Mother Mother's Sister Sister Social History Tobacco Use Types Packs/Day Years Used Date Smoking Tobacco: Every Day Cigarettes Passive Smoke Exposure: Current Smokeless Tobacco: Never Tobacco Cessation:Ready to Q uit: Not Asked; Counseling Given: Not Answered Alcohol Use Standard Drinks/Week Comments Yes 0 (1 standard drink = 0.6 oz pur e alcohol) Occassionally Depression Answer Date Recorded Patient Health Questionnaire-9 Score 0 02/19/2023 Patient Health Questionnaire-9 Score 0 02/19/2023 Last PHQ-9: Questionnaire Data Not on file 1 04/22/2022 Housing Stability Answer Date Recorded What is your housing situation today? I have michelle bryan 02/19/[address] you li ve. Do you have problems with any of the following? None of the above 02/19/2023 Food Insecurity Answer Date Recorded Within the past 12 months, y ou worried that your food would run out before you got money to buy more: Never True 02/19/2023 Within the past 12 months,th e food you bought just didn't last and you didn't have enough money to get more: Never True Transportation Answer Date Recorded In the past 12 months, has l ack of transportation kept you from medical appts, meetings, work or from getting things needed for daily living? No 02/19/2023 Utilities Answer Date Recorded In the past 12 months, has t he electric, gas, oil or water company threatened to shut off services in your home? No 02/19/2023 Depression Answer Date Recorded Patient Health Questionnaire-2 Score 0 02/19/2023 Internet Access Answer Date Recorded Internet Access Q1 Yes 11/09/2023 Internet Access Q2 Not on file 11/09/2023 Comments Unknown Sex and Gender Information Value Date Recorded Sex Assigned at Female 01/06/2022 10:15 AM EDT Legal Sex Female 10:15 AM EDT Gender Identity Female 01/06/2022 10:15 AM EDT Sexual Orientation Straight 01/06/2022 10 :15 AM EDT Last Filed Vital Signs Vital Sign Reading Time Taken Comments Blood Pressure 118/76 10/07/2024 12:02 PM EDT Pulse 84 10/07/2024 12:02 PM EDT Temperature 36.2 C (97.2 F) 10/07/2024 12:02 PM EDT Respiratory Rate 20 02/02/2024 2:42 PM EST Oxygen Saturation 97% 02/02/2024 2:42 PM EST Inhaled Oxygen Concentration - - Weight 97.9 kg (215 lb 12.8 oz) 025 12:02 PM EDT Height 157.5 cm (5' 2 ) 10/07/2024 12:0 2 PM EDT Body Mass Index 39.47 10/07/2024 12:02 PM EDT Plan of Treatment Upcoming Encounters Date Type Department Care Team (Late st Contact Info) Description 12/07/2024 11:30 AM EDT Telemedicine [facility] [address] [place], [place] [phone] Maggie Mace MD [address] [place] [address] Health Maintenance Due Date Last Done Comments HIV Screening 1985 Disability Screening 1985 Family Planning (PISQ) 09/10/2002 HPV Vaccines (1 - 3-dose series) 09/10/2002 Hepatitis C Screening 09/10/2005 Pneumococcal Vaccine: Pediatrics (0 to 5 Years) and At-Risk Patients (6 to 49) Years (1 of 2 - PCV) 09/10/2006 Pap Smear 09/10/2008 Hepatitis B Vaccines (2 of 3 - 19+ 3-dose series) 05/31/2014 05/03/2014, 06/10/2011 HPV/Cotest 04/30/2021 04/30/2016 Depression Screening 02/20/2024 02/19/2023, 02/20/20 23 COVID-19 Vaccine ( season) 2024 03/12/2022, 03/13/2021, 04/02/2020, Additional history exists Influenza Vaccine (#1) 2024 , 11/17/2018, 11/18/2017, Additional history exists Alcohol/Substance Use Screening 02/01/2025 02/02/2024 SDOH Screening 04/20/2025 04/20/2024 Lipid Panel 06/21/2025 06/21/2020 Tobacco Screening 10/07/2025 10/07/2024 DTaP/Tdap/Td Vaccines (3 - Td or Tdap) 08/13/2031 08/12/2021, 09/26/2010 Zoster Vaccines (1 of 2) 09/10/2037 RSV Patients and Patients Aged 60 years or older (1 - 1-dose 75+ series) 09/10/2062 Cervical Cancer Screening Discontinued HIB Vaccines Aged Out No longer eligi ble based on patient's age to complete this topic Hepatitis A Vaccines Aged Out No long er eligible based on patient's age to complete this topic IPV Vaccines Aged Out No longer eligi ble based on patient's age to complete this topic Meningococcal B Vaccine Aged Out No l onger eligible based on patient's age to complete this topic Meningococcal Vaccine Aged Out No todd vania eligible based on patient's age to complete this topic RSV under 20 months Aged Out No longe r eligible based on patient's age to complete this topic Rotavirus Vaccines Aged Out No longer eligible based on patient's age to complete this topic Procedures Procedure Name Priority Date/Time Associated Diagnosis Comments BI US BREAST LIMITED LEFT Routine 11/17/2024 11:45 AM EDT Breast pain, left BI MAMMOGRAM DIAGNOSTIC TOMOSYNTHESIS BILATERAL Routine 11/17/2024 11:25 AM EDT LIPID PANEL, STANDARD Routine 06/21/2020 8:23 AM EDT ZZZ HISTORICAL HPV MRNA E6/E7 Routine 04/30/2016 9:15 AM EST from Last 3 Months or Most Recently Relevant to Health Maintenance Results * BI US Breast Limited Left (11/17/2024 11:45 AM EDT) Anatomical Region Laterality Modality Breast Left Ultrasound 11/17/2024 11:4 5 AM EDT Narrative 11/17/2024 1:18 PM EDT [facility] [address] [place], [place] [address] Ultrasound Report Signed Patient: Janeth Martinez MR#: [id number] [birth year] : 1985 Acct:[id number] Age/Sex: 39 / F ADM Date: 11/17/24 Loc: HO.MAMMO Attending Dr: Maggie Allan MD Ordering Physician: Maggie Mace MD Date of Service: 11/17/24 Procedure(s): US breast LT limited Accession Number(s): [id number] cc: Maggie Mace MD Reason for Exam: pain at 3 o clock EXAMINATION: MM DIAGNOSTIC DIGITAL BREAST TOMOSYNTHESIS, BILATERAL Bilateral Limited ultrasound. CLINICAL INFORMATION: Bilateral breast pain. COMPARISON: Mammography: Comparison is made with relevant prior exams. TECHNIQUE: Digital breast mammography with tomosynthesis is performed in both the craniocaudal and mediolateral oblique views along with computer-aided detection (CAD). FINDINGS: There are scattered areas of fibroglandular density (ACR BI-RADS breast composition Category b). Left: Triangular marker in the upper outer breast site of patient's pain without underlying abnormal finding. No suspicious calcifications or other abnormal findings. Targeted color Doppler ultrasound scanning in the area of the patient's left breast pain from 2-4 o'clock demonstrates normal fibronodular breast tissue. There is no sonographic abnormal finding. Right: Wellesley marker at site of patient's pain upper outer breast anterior depth without underlying abnormal finding. No suspicious calcifications or other abnormal findings. Targeted color Doppler ultrasound scanning in the area the patient's pain from 8-10 o'clock retroareolar region demonstrates normal fibronodular breast tissue. There is no sonographic abnormal finding. Results are provided to the patient at time of visit by the technologist. US/US breast LT limited IMPRESSION: No mammographic or sonographic abnormal finding in the bilateral breasts to account for the patient's pain. Recommend clinical evaluation follow-up. ASSESSMENT: BI-RADS BI-RADS 1 - Negative RECOMMENDATION: 1. Patient should be managed based on the clinical impression. 2. Otherwise, routine annual screening mammography. This patient's information was entered into a reminder system with a target due date for their next mammogram. Electronically signed by: Rosalina Nina DO 11/17/2024 01:15 PM EDT Dictated By: Tyminski,Rosalina DO Signed By: <Electronically signed by Rosalina Nina, DO in OV> 11/17/24 1315 DD/ 1145 TD/TT: 11/17/24 1200 Lifeguard: Procedure Note Donotluandennister, Image - 11/17/2024 [place] [facility] [address] [place] [address] Ultrasound Report Signed Patient: Janeth MartinezMR#: [id number] 31 : 1985Acct:[id number] Age/Sex: 39 / FADM Date: 11/17/24 Loc: HO.MAMMO Attending Dr: Maggie Allan MD Ordering Physician: Maggie Mace MD Date of Service: 11/17/24 Procedure(s): US breast LT limited Accession Number(s): [id number] cc: Maggie Mace MD Reason for Exam: pain at 3 o clock EXAMINATION: MM DIAGNOSTIC DIGITAL BREAST TOMOSYNTHESIS, BILATERAL Bilateral Limited ultrasound. CLINICAL INFORMATION: Bilateral breast pain. COMPARISON: Mammography: Comparison is made with relevant prior exams. TECHNIQUE: Digital breast mammography with tomosynthesis is performed in both the craniocaudal and mediolateral oblique views along with computer-aided detection (CAD). FINDINGS: There are scattered areas of fibroglandular density (ACR BI-RADS breast composition Category b). Left: Triangular marker in the upper outer breast site of patient's pain without underlying abnormal finding. No suspicious calcifications or other abnormal findings. Targeted color Doppler ultrasound scanning in the area of the patient's left breast pain from 2-4 o'clock demonstrates normal fibronodular breast tissue. There is no sonographic abnormal finding. Right: Wellesley marker at site of patient's pain upper outer breast anterior depth without underlying abnormal finding. No suspicious calcifications or other abnormal findings. Targeted color Doppler ultrasound scanning in the area the patient's pain from 8-10 o'clock retroareolar region demonstrates normal fibronodular breast tissue. There is no sonographic abnormal finding. Results are provided to the patient at time of visit by the technologist. US/US breast LT limited IMPRESSION: No mammographic or sonographic abnormal finding in the bilateral breasts to account for the patient's pain. Recommend clinical evaluation follow-up. ASSESSMENT: BI-RADS BI-RADS 1 - Negative RECOMMENDATION: 1. Patient should be managed based on the clinical impression. 2. Otherwise, routine annual screening mammography. This patient's information was entered into a reminder system with a target due date for their next mammogram. Electronically signed by: Rosalina Nina DO 11/17/2024 01:15 PM EDT Dictated By: Rosalina Nina DO Signed By: <Electronically signed by Rosalina Nina DO in OV> 11/17/24 1315 DD/ 1145 TD/TT: 11/17/24 1200 Lifeguard: us Maggie Allan MD IMG US PROCEDURES Fin al Result * BI Mammogram Diagnostic Tomosynthesis Bilateral (11/17/2024 11:25 AM EDT) Anatomical Region Laterality Modality Breast Bilateral Mammography 11/17/2024 11:2 5 AM EDT Narrative 11/17/2024 1:18 PM EDT [facility] [address] [place] [address] Mammography Report Signed Patient: Janeth Martinez MR#: [id number] [birth year] : 1985 Acct:[id number] Age/Sex: 39 / F ADM Date: 11/17/24 Loc: HO.MAMMO Attending Dr: Maggie Allan MD Ordering Physician: Maggie Mace MD Results: 1Negative Date of Service: 11/17/24 Follow Up: 1 Year From Orig inal Mammogram Procedure(s): MM tomosynthesis diagnostic BI Accession Number(s): [id number] cc: Maggie Mace MD EXAMINATION: MM DIAGNOSTIC DIGITAL BREAST TOMOSYNTHESIS, BILATERAL Bilateral Limited ultrasound. CLINICAL INFORMATION: Bilateral breast pain. COMPARISON: Mammography: Comparison is made with relevant prior exams. TECHNIQUE: Digital breast mammography with tomosynthesis is performed in both the craniocaudal and mediolateral oblique views along with computer-aided detection (CAD). FINDINGS: There are scattered areas of fibroglandular density (ACR BI-RADS breast composition Category b). Left: Triangular marker in the upper outer breast site of patient's pain without underlying abnormal finding. No suspicious calcifications or other abnormal findings. Targeted color Doppler ultrasound scanning in the area of the patient's left breast pain from 2-4 o'clock demonstrates normal fibronodular breast tissue. There is no sonographic abnormal finding. Right: Well[place]ley marker at site of patient's pain upper outer breast anterior depth without underlying abnormal finding. No suspicious calcifications or other abnormal findings. Targeted color Doppler ultrasound scanning in the area the patient's pain from 8-10 o'clock retroareolar region demonstrates normal fibronodular breast tissue. There is no sonographic abnormal finding. Results are provided to the patient at time of visit by the technologist. MM/MM tomosynthesis diagnostic BI IMPRESSION: No mammographic or sonographic abnormal finding in the bilateral breasts to account for the patient's pain. Recommend clinical evaluation follow-up. ASSESSMENT: BI-RADS BI-RADS 1 - Negative RECOMMENDATION: 1. Patient should be managed based on the clinical impression. 2. Otherwise, routine annual screening mammography. This patient's information was entered into a reminder system with a target due date for their next mammogram. Electronically signed by: Rosalina Nina DO 11/17/2024 01:15 PM EDT Dictated By: Rosalina Nina DO Signed By: <Electronically signed by Rosalina Nina DO in OV> 11/17/24 1315 DD/ 1125 TD/TT: 11/17/24 1135 Lifeguard: Procedure Note Donotuseinterpreter, Image - 11/17/2024 [facility] [address] [place] [address] Mammography Report Signed Patient: Janeth Martinez#: [id number] [birth year] : 1985Acct:[id number] Age/Sex: 39 / FADM Date: 11/17/24 Loc: HO.MAMMO Attending Dr: Maggie Allan MD Ordering Physician: Maggie Mace MDResults: 1Negative Date of Service: 11/17/24Follow Up: [facility] Procedure(s): MM tomosynthesis diagnostic BI Accession Number(s): [id number] cc: Maggie Mace MD EXAMINATION: MM DIAGNOSTIC DIGITAL BREAST TOMOSYNTHESIS, BILATERAL Bilateral Limited ultrasound. CLINICAL INFORMATION: Bilateral breast pain. COMPARISON: Mammography: Comparison is made with relevant prior exams. TECHNIQUE: Digital breast mammography with tomosynthesis is performed in both the craniocaudal and mediolateral oblique views along with computer-aided detection (CAD). FINDINGS: There are scattered areas of fibroglandular density (ACR BI-RADS breast composition Category b). Left: Triangular marker in the upper outer breast site of patient's pain without underlying abnormal finding. No suspicious calcifications or other abnormal findings. Targeted color Doppler ultrasound scanning in the area of the patient's left breast pain from 2-4 o'clock demonstrates normal fibronodular breast tissue. There is no sonographic abnormal finding. Right: [place] marker at site of patient's pain upper outer breast anterior depth without underlying abnormal finding. No suspicious calcifications or other abnormal findings. Targeted color Doppler ultrasound scanning in the area the patient's pain from 8-10 o'clock retroareolar region demonstrates normal fibronodular breast tissue. There is no sonographic abnormal finding. Results are provided to the patient at time of visit by the technologist. MM/MM tomosynthesis diagnostic BI IMPRESSION: No mammographic or sonographic abnormal finding in the bilateral breasts to account for the patient's pain. Recommend clinical evaluation follow-up. ASSESSMENT: BI-RADS BI-RADS 1 - Negative RECOMMENDATION: 1. Patient should be managed based on the clinical impression. 2. Otherwise, routine annual screening mammography. This patient's information was entered into a reminder system with a target due date for their next mammogram. Electronically signed by: Rosalina Nina DO 11/17/2024 01:15 PM EDT Dictated By: Rosalina Nina DO Signed By: <Electronically signed by Rosalina Nina DO in OV> 11/17/24 1315 DD/ 1125 TD/TT: 11/17/24 1135 Lifeguard: Maggie Allan MD [facility] Result * (ABNORMAL) LIPID PANEL, STANDARD (06/21/2020 8:23 AM EDT) Chol/HDLC Ratio 3.8 <5.0 (calc) [facility] Cholesterol, Total 172 <200 mg/dL [facility] HDL Cholesterol 45(L) > OR = 50 mg/dL [facility] LDL Cholesterol 108(H) mg/dL (calc) [facility] Comment: Reference range: <100 Desirable range <100 mg/dL for primary prevention; <70 mg/dL for patients with CHD or diabetic patients with > or = 2 CHD risk factors. LDL-C is now calculated using the Paulie-Marilu calculation, which is a validated novel method providing better accuracy than the Friedewald equation in the estimation of LDL-C. Paulie GARCIA et al. BEAU. 2013;310(19): 1613-7729 (http://education.Dsg.nr.Caravan/faq/KOY733) Non-HDL Cholesterol 127 <130 mg/dL (calc) [facility] Comment: For patients with diabetes plus 1 major ASCVD risk factor, treating to a non-HDL-C goal of <100 mg/dL (LDL-C of <70 mg/dL) is considered a therapeutic option. Triglycerides 94 <150 mg/dL [facility] 06/21/2020 8:23 AM EDT Maggie Allan MD LAB BLOOD ORDERABLES Final Result [facility] [address] * (ABNORMAL) HPV mRNA E6/E7 (04/30/2016 9:15 AM EST) HPV mRNA E6/E7 DETECTED( AA) NOT DETECTED [facility] Comment: This test was performed using the APTIMA(R) HPV Assay ([employer] This assay detects E6/E7 viral messenger RNA (mRNA) from 14 high-risk HPV types (16,18,31,33,35,39,45,51, 52,56,58,59,66,68). For additional information please refer to: http://education.LockerDome.Caravan/faq/BNU665s1 (This link is being provided for informational/ educational purposes only.) Test Performed by Radha Tucker, [facility], [address] [place] [address] Russ Renee M.D., Ph.D., Director of Laboratories , [facility] [id number] Please note: Effective 11/19/2015, HPV testing will be performed using [employer] APTIMA test which targets mRNA. Detecting mRNA instead of DNA, as in older methods, offers significant improvements in specificity. 04/30/2016 9:15 AM EST Jacqueline Snell CNM HISTORICAL/NON ORDERABLE LABS Final Result [facility] [address] from Last 3 Months or Most Recently Relevant to Health Maintenance Insurance [facility] [facility] [address] [place] [address] Care Teams Instructor Bridge Relationship Specialty Start Date End Date Maggie Mace MD [address] [place] [phone] PCP - General Family Medicine 02/27/20
--- OUTSIDE RECORDS SUMMARY | 2024-11-17 15:34 | XMS_ITS | Clinical Summary ---
Author Organization [facility] Address [address] [place] [address] Phone Care Team Providers Care Extension Professor Name Role Phone Maggie Mace MD Primary Care Provide r Allergies Active Allergy Reactions Criticality Noted Date Comments Penicillins 09/10/2024 Medications No known medications Active Problems No known active problems Encounters Date Type Department Care Team Description 09/10/2024 7:07 AM EDT - 09/10/2024 8:51 AM EDT Emergency [facility] Emergency [address] [place] [address] Calcific tendinitis (Primary Dx) Discharge Disposition: Home or Self Care from Last 3 Months Social History Tobacco Use Types Packs/Day Years Used Date Smoking Tobacco: Never Assessed Comments Unknown Sex and Gender Information Value Date Recorded Sex Assigned at Not on file Legal Sex Female 9:43 AM EST Gender Identity Not on file Sexual Orientation Not on file Obstetrics History Last Filed Vital Signs Vital Sign Reading Time Taken Comments Blood Pressure 110/73 09/10/2024 4:39 AM EDT Pulse 77 09/10/2024 4:39 AM EDT Temperature 36.4 C (97.5 F) 09/10/2024 4:39 AM EDT Respiratory Rate 18 09/10/2024 4:39 AM EDT Oxygen Saturation 100% 09/10/2024 4:39 AM EDT Inhaled Oxygen Concentration - - Weight 90.7 kg (200 lb) 09/10/2024 4:39 AM EDT Height 154.9 cm (5' 1 ) 09/10/2024 4:39 AM EDT Body Mass Index 37.79 09/10/2024 4:39 AM EDT Plan of Treatment Health Maintenance Due Date Last Done Comments Cervical Cancer Screening: Pap Smear 09/10/2008 Hepatitis B Vaccines (2 of 3 - 19+ 3-dose series) 05/31/2014 05/03/2014, 06/10/2011 Depression Screening 03/09/2024 HIV Screening 09/10/2024 Hepatitis C Screening 09/10/2024 Social Influencers of Health Screening 09/10/2024 COVID-19 Vaccine ( season) 2024 03/12/2022, 03/13/2021, 04/02/2020, Additional history exists Influenza Vaccine (#1) 2024 , 11/17/2018, 11/18/2017, Additional history exists Cholesterol Screening (Lipid Panel) 06/21/2025 06/21/2020 DTaP,Tdap,and Td Vaccines (3 - Td or Tdap) 08/13/2031 08/12/2021, 09/26/2010 Varicella Vaccines Aged Out 04/24/2011 No longer eligible based on patient's age to complete this topic HIB Vaccines Aged Out No longer eligi ble based on patient's age to complete this topic HPV Vaccines Aged Out No longer eligi ble based on patient's age to complete this topic Hepatitis A Vaccines Aged Out No long er eligible based on patient's age to complete this topic IPV Vaccines Aged Out No longer eligi ble based on patient's age to complete this topic MMR Vaccines Aged Out No longer eligi ble based on patient's age to complete this topic Meningococcal ACWY Vaccine Aged Out N o longer eligible based on patient's age to complete this topic Meningococcal B Vaccine Aged Out No l onger eligible based on patient's age to complete this topic Pneumococcal Vaccine: Pediatrics (0 to 5 Years) and At-Risk Patients (6 to 49 Years) Aged Out No longer eligible based on patient's age to complete this topic RSV Immunization Patients Under 20 months Aged Out No longer eligible based on patient's age to complete this topic Procedures Procedure Name Priority Date/Time Associated Diagnosis Comments XR SHOULDER 2+ VIEWS LEFT STAT 09/10/2024 7:15 AM EDT from Last 3 Months Results * XR Shoulder 2+ Views Left (09/10/2024 7:15 AM EDT) Anatomical Region Laterality Modality Upper Extremities, Shoulder Left Radi ographic Imaging 09/10/2024 8:15 AM EDT Impressions 09/10/2024 8:15 AM EDT FINDINGS/IMPRESSION: No acute fracture. Normal alignment. Trace calcific tendinitis. -------- FINAL REPORT -------- Dictated By: Jarad Gifford Dictated Date: 09/10/2024 08:15 ET Assigned Physician: Jarad Gifford Reviewed and Electronically Signed By: Jarad Gifford Signed Date: 09/10/2024 08:15 ET Workstation ID: [id number] Transcribed By: Self Edit Transcribed Date: 09/10/2024 08:15 ET Narrative 09/10/2024 8:15 AM EDT XR SHOULDER 2+ VIEWS LEFT INDICATION: pain TECHNIQUE: XR SHOULDER 2+ VIEWS LEFT COMPARISON: No priors available. Procedure Note Jarad Gifford MD - 09/10/2024 XR SHOULDER 2+ VIEWS LEFT INDICATION: pain TECHNIQUE: XR SHOULDER 2+ VIEWS LEFT COMPARISON: No priors available. IMPRESSION: FINDINGS/IMPRESSION: No acute fracture. Normal alignment. Trace calcifictendinitis. -------- FINAL REPORT -------- Dictated By: Jarad Gifford Dictated Date: 09/10/2024 08:15 ET Assigned Physician: Jarad Gifford Reviewed and Electronically Signed By: Jarad Gifford Signed Date: 09/10/2024 08:15 ET Workstation ID: [id number] Transcribed By: Self Edit Transcribed Date: 09/10/2024 08:15 ET Frances Esposito MD IMG XR PROCEDURES Final Result from Last 3 Months Insurance [facility] [address] [place] [id number] Care Teams Extension Professor Relationship Specialty Start Date End Date Maggie Mace MD [address] [place] [address] [address] [place] [phone] PCP - General Internal Medicine 09/10/24
--- OUTSIDE RECORDS SUMMARY | 2024-11-17 15:35 | XMS_ITS | Encounter Summary ---
Author Organization [employer] Address [address] [facility] [address] [place] [address] Care Team Providers Care Shipping Point Inspector Name Role Phone Maggie Mace MD Primary Care Provide r Encounter Details Date Type Department Care Team (Late Contact Info) Description 07/30/2022 Orders Only [facility] MEDICINE [address] [place] [phone] Cristela Addison FNP [address] [place], [place] [phone] Social History Tobacco Use Types Packs/Day Years Used Date Smoking Tobacco: Every Day Cigarettes Smokeless Tobacco: Never Alcohol Use Standard Drinks/Week Comments Yes 0 (1 standard drink = 0.6 oz pur e alcohol) Occassionally Comments Unknown Sex and Gender Information Value Date Recorded Sex Assigned at Female 01/06/2022 10:15 AM EDT Legal Sex Female 10:15 AM EDT Gender Identity Female 01/06/2022 10:15 AM EDT Sexual Orientation Straight 01/06/2022 10 :15 AM EDT COVID-19 Exposure Response Date Recorded In the last 10 days, have yo u been in contact with someone who was confirmed or suspected to have Coronavirus/COVID-19? No / Unsure 07/28/2022 10:21 AM EDT documented as of this encounter Plan of Treatment Upcoming Encounters Date Type Department Care Team (Late Contact Info) Description 12/07/2024 11:30 AM EDT Telemedicine [facility] MEDICINE [address] [place] [phone] Maggie Mace MD [address] [place], [place] [phone] documented as of this encounter Visit Diagnoses Not on filedocumented in this encounter Care Teams Shipping Point Inspector Relationship Specialty Start Date End Date Maggie Mace MD [address] [place] [address] PCP - General Family Medicine 02/27/20 documented as of this encounter
== END 2024-11-17 11:17 | disposition home or self-care (01) ==
LOC: HO.MAMMO 11:16
PROVIDERS: PCP Internal Medicine; Visit Provider Internal Medicine
DX: N64.4 Mastodynia (principal)
CPT/HCPCS: 76642; 77062; 77066

== ENCOUNTER → 2024-11-17 11:21 | Outpatient (BNV) | payer OTHER, SELFPAY | PROVIDERS: PCP Internal Medicine; Visit Provider Internal Medicine | DX: N64.4 Mastodynia (principal) | CPT/HCPCS: 76642; 77062; 77066 ==